=== PATIENT | female | born 1965 | race Caucasian/White ===

== ENCOUNTER 2017-10-04 23:00 | Observation (INO) ==
[2017-10-05] MEDS ORDERED: *HR* HYDROcodone/Acet 5/325 mg TABLET PO PRN (03:10)
[2017-10-05] MEDS ORDERED: Naloxone 0.4 MG/ML INJ IVP PRN (03:10)
[2017-10-05] MEDS ORDERED: Acetaminophen 325 MG TABLET PO PRN (03:10)
[2017-10-05] MEDS ORDERED: Ondansetron 4 MG/2 ML VIAL IVP PRN (03:10)
[2017-10-05] MEDS ORDERED: *HR* Heparin 5,000 UNIT/ML VIAL IVP PRN ×2 (03:13)
[2017-10-05] MEDS ORDERED: Nitroglycerin 1 INCH/GM PACKET TP ONE (03:14)
[2017-10-05] MEDS ORDERED: Heparin 25,000 UNIT/500 ML D5W 25,000 UNIT/500 ML BAG IVC SCH (03:15)
[2017-10-05] MEDS ORDERED: ALPRAZolam 1 MG TABLET PO PRN (03:15)
[2017-10-05 03:57] LABS: Hematocrit 39.3 % (35.3-44.9); Immature Platelets 8.6 % (1.1-6.1); Mean Corpuscular HGB Conc 33.1 g/dL (31.6-35.5); Mean Corpuscular Hemoglobin 31.1 pg (28.0-33.3); Mean Platelet Volume 11.5 fL (9.4-12.4); Red Blood Count 4.18 M/mcL (3.82-4.97); Red Cell Distribution Width 12.4 % (11.5-14.5)
[2017-10-05 03:59] LABS: Basophils # 0.1 K/mcL (0.0-0.2); Basophils % 0.5 %; Eosinophils # 0.4 K/mcL (0.0-0.6); Eosinophils % 3.1 %; Hematocrit 39.3 % (35.3-44.9); Immature Granulocytes % 0.4 % (0-4); Immature Platelets 8.5 % (1.1-6.1); Lymphocytes % 44.7 %; Mean Corpuscular HGB Conc 33.1 g/dL (31.6-35.5); Mean Corpuscular Hemoglobin 31.2 pg (28.0-33.3); Mean Corpuscular Volume 94.2 fL (83.0-100.0); Mean Platelet Volume 11.5 fL (9.4-12.4); Monocytes # 0.8 K/mcL (0.0-1.3); Monocytes % 6.8 %; Platelet Count 202 K/mcL (140-400); Red Blood Count 4.17 M/mcL (3.82-4.97); Red Cell Distribution Width 12.4 % (11.5-14.5); Segmented Neutrophils % 44.5 %
[2017-10-05 04:04] LABS: Prothrombin Time 21.3 Seconds (9.4-12.1)
[2017-10-05 04:07] LABS: Activated Partial Thrombo Time 80.1 Seconds (26.0-36.0)
[2017-10-05 04:12] LABS: BUN/Creatinine Ratio 29 (6-26); Blood Urea Nitrogen 18 mg/dL (6-20); Calcium 8.9 mg/dL (8.6-10.3); Carbon Dioxide 27 mEq/L (23-29); Chloride 112 mEq/L (98-107); Chol/HDL Ratio 4.2 (0-4.9); Cholesterol 130 mg/dL (< 200); Glucose 107 mg/dL (70-105); HDL Cholesterol 31 mg/dL (40-59); LDL Cholesterol,Calculated 79 mg/dL (0-99); Magnesium 2.2 mg/dL (1.6-2.6); Osmolality,Calculated 296 (280-300); Potassium 3.7 mEq/L (3.5-5.1); Sodium 142 mEq/L (136-145); Triglycerides 101 mg/dL (< 150); eGFR For African Americans > 60 (> 60); eGFR For Non-African Americans > 60 (> 60)
--- NOTE | 2017-10-05 06:20 | Internal Med History&Physical ---
Date of Encounter: 10/05/17 Time of Encounter: 02:00 Assessment and Plan (1) Chest pain Current visit: No Status: Acute Patient has a typical chest pain. History of CAD. - We will place patient on continuous cardiac monitoring. - Track 3 sets of troponin. - NTG paste. (Patient said SL NTG or NTG drip will make her hypotension) - Heparin drip per cardio recommendations - Pain medication as needed. - We will consult cardiology in a.m. Patient is at high risk because she is on heparin drip need close monitoring Qualifiers: Chest pain type: chest pain due to myocardial ischemia Ischemic chest pain type: unstable angina pectoris Qualified Code(s): I20.0 - Unstable angina (2) CAD (coronary artery disease) Current visit: No Status: Chronic Management as above Qualifiers: Coronary Disease-Associated Artery/Lesion type: bypass graft [place] vs. transplanted heart: [place] heart Associated angina: with unstable angina Qualified Code(s): I25.700 - Atherosclerosis of coronary artery bypass graft(s) , unspecified, with unstable angina pectoris (3) Ischemic cardiomyopathy Current visit: No Status: Chronic LVEF 45%. On beta amparo and EPHRAIM inhibitor. Patient appears euvolemic at this point (4) LV (left ventricular) mural thrombus Current visit: No Status: Chronic History of LV thrombosis. Patient is on Coumadin at home. Will hold Coumadin at this point as we have placed her on heparin drip. (5) DVT prophylaxis Current visit: No Status: Acute Patient is on heparin drip (6) Renal cell carcinoma Current visit: No Status: Resolved S/p ablation per patient. Qualifiers: Laterality: unspecified laterality Qualified Code(s): C64.9 - Malignant neoplasm of unspecified kidney, except renal pelvis (7) Hypertension Current visit: No Status: Chronic Qualifiers: Hypertension type: essential hypertension Qualified Code(s): I10 - Essential (primary) hypertension (8) Cigarette smoker Current visit: No Status: Chronic Smoking cessation education. Patient said she does not need nicotine patch at this point but may request if she feels that she needs Internal Medicine - H&P: HPI Chief complaint: Chest pain Admitted From: Home Plans for Post Hospital Care: Home History of present illness: Ms. Lawrence is a 52 year old female with history of CAD S/P stent and CABG, CHF, hypertension, history of renal carcinoma presents to [facility] emergency room for chest pain. Patient said pain started around 9:15 PM when she was wrapping up the [place] gifts at home. Sudden onset. Chest pain located on the mid chest and radiated to left arm and back, sharp pressure-like, 4-5 out of 10. Patient has shortness of breath, diaphoresis, and nausea. Patient has similar chest pain before but this time is worse. First troponin negative. Her EKG shows ischemia and possible acute ND. EKG was reviewed by cardiology Dr. Sarah and consider no significant change with previous EKG. Heparin drip was recommended. Patient was transferred to our hospital for further management. Past Med Surg Social Fam HX - Past Medical History Medical history: cancer, cardiomyopathy, CHF, coronary artery disease, hyperlipidemia, hypertension, myocardial infarction Psychiatric history: anxiety, depression - Past Surgical History Surgical History: appendectomy, coronary bypass (CABG), hysterectomy, pacemaker/ AICD, other - Social History Smoking Status: Current every day smoker Packs per day: 1 Smokeless Tobacco Status: No Alcohol use: none Drug use: none - Family History Brother Hx Family Cardiac Disorders: Yes (CAD) Father Living Status: Hx Family Cardiac Disorders: Yes (ND, CAD, CVA, HTN) Mother Living Status: Hx Family Cardiac Disorders: Yes (HTN) Hx Family Respiratory Disorders: Yes Hx Family Cancer: Yes (lung, uterine, laryngeal) Internal Medicine - H&P: Meds ALPRAZolam [Xanax 1 MG Tablet] 1 mg PO BID PRN 11/09/15 [History] Aspirin [Adult Low Dose Aspirin EC] 81 mg PO QAM 11/09/15 [History] Carvedilol Phosphate [Coreg Cr] 20 mg PO QPM 11/09/15 [History] Furosemide [Lasix] 20 mg PO QAM 11/09/15 [History] Lisinopril 5 mg PO DAILY 11/09/15 [History] Loratadine [Claritin] 10 mg PO QAM 11/09/15 [History] Omeprazole [PriLOSEC] 40 mg PO BID 11/09/15 [History] Potassium Chloride [K-Tab ER] 10 meq PO QAM 11/09/15 [History] Simvastatin [Zocor] 40 mg PO QPM 11/09/15 [History] Warfarin [Coumadin] 6 mg PO AD 11/09/15 [History] Warfarin [Coumadin] 9 mg PO AD 11/09/15 [History] Venlafaxine HCl [Venlafaxine HCl ER] 75 mg PO DAILY 08/08/16 [History] Isosorbide MONOnitrate (24 HR) [Imdur] 30 mg PO DAILY #30 tab.er.24h 08/10/16 [ Rx] Varenicline Tartrate [Chantix] 1 each PO BID #60 tab.ds.pk 08/10/16 [Rx] 3 Allergy/AdvReac Type Severity Reaction Status Date / Time Penicillins Allergy Anaphylaxis Verified 08/08/16 11:54 escitalopram [From Lexapro] AdvReac Gastrointestinal Verified 11/09/15 17:20 Upset Vinyl Gloves Allergy Rash Uncoded 11/09/15 17:20 All Systems PM: A 10-system review of systems was performed and is negative for pertinent findings except as documented above in the HPI. - Constitutional Vitals: Temp Pulse Resp BP Pulse Ox 98.9 F 64 16 138/81 96 10/05/17 04:07 10/05/17 04:07 10/05/17 04:07 10/05/17 04:07 10/05/17 04:07 General appearance: Present: mild distress, A&O X 3, answers questions appropriately - Head Head exam: Present: atraumatic, normocephalic - Eye Eye exam: Present: PERRL, conjuntiva pink, sclera anicteric Pupils: Present: PERRL - Neck Neck exam general surgery: Present: supple, trachea midline. Absent: lymphadenopathy - Respiratory Respiratory exam: Present: CTAB. Absent: accessory muscle use, rales, rhonchi, wheezes - Cardiovascular Cardiovascular exam: Present: RRR, +S1, +S2. Absent: diastolic murmur, gallop, rubs, systolic murmur - GI/Abdominal GI/Abdominal exam: Present: normal bowel sounds, soft, no peritoneal signs. Absent: distended, tenderness - Extremities Exam Extremities exam: Present: warm, radial pulses palpable and symmetrical. Absent : calf tenderness, cyanotic, pedal edema - Neurological Exam Neurological exam: Present: CN II-XII intact, oriented X3, no focal deficits. Absent: pronater drift, facial droop, speech deficit - Skin Skin exam: Present: dry, intact Internal Med - H&P Results - Labs CBC & Chem 7: 10/05/17 03:39 10/05/17 03:39 Labs: Short CBC 10/05/17 10/05/17 Range/Units 03:39 03:39 WBC 11.2 H 11.3 H (4.3-11.1) K/mcL Hgb 13.0 13.0 (11.5-15.4) g/dL Hct 39.3 39.3 (35.3-44.9) % Plt Count 202 201 (140-400) K/mcL Neutrophils # 5.0 (1.6-8.9) K/mcL BMP 10/05/17 03:39 Sodium 142 Potassium 3.7 Chloride 112 H Carbon Dioxide 27 BUN 18 Creatinine 0.62 Glucose 107 H Calcium 8.9 Cardiac Enzymes 10/05/17 Range/Units 03:39 Troponin I < 0.03 (< 0.04) ng/mL - EKG Data -: EKG Interpreted by Myself EKG shows normal: sinus rhythm, ST-T waves (Poot R wave progression on V1-V3, T wave inversion through V3-V6) Rate: normal - EKG Data Prior EKG available for review: yes When compared to previous EKG: there is no significant change Interpretation IM: suggestive of ischemia
[2017-10-05] MEDS: Aspirin Enteric Coated 81 MG Tablet PO SCH (08:30)
[2017-10-05] MEDS: Loratadine 10 MG TABLET PO SCH (08:30)
[2017-10-05] MEDS: Furosemide 20 MG TABLET PO SCH (08:31)
[2017-10-05] MEDS ORDERED: Isosorbide MONOnitrate (24 HR) 30 MG TAB.ER.24H PO SCH (09:00)
--- NOTE | 2017-10-05 10:20 | Cardiology Consult Note ---
<Laila Pace Adrian - Last Filed: 10/05/17 10:42> Date of Encounter: 10/05/17 Time of Encounter: 09:30 Assessment and Plan (1) Chest pain Current Visit: Yes Status: Acute Atypical chest pain. Troponin negative x2. ECG unchanged from 07/2016. Blood pressure severely elevated upon admission at [facility], SBP>190. Check echocardiogram. Suspect symptoms may be secondary to severely elevated BP. Stop NTG paste, will increase Imdur to 60 mg. Continue asa, statin, and betablocker. Await results of third troponin measurement. If no significant changes on TTE, recommend medical management. Can consider ischemic evaluation in the outpatient setting. Close follow-up with [facility], Dr. He. Qualifiers: Chest pain type: chest pain due to myocardial ischemia Ischemic chest pain type: unspecified angina pectoris type Qualified Code(s): I20.9 - Angina pectoris, unspecified (2) Ischemic cardiomyopathy Current Visit: Yes Status: Acute Hx of ischemic cardiomyopathy s/p ICD implant. CABG 2009. [facility] 07/2016--s/p 3 of 3 patent bypass grafts and patent pLAD stent. EF 45% per TTE 07/2016. Continue current CV medications. Plan as stated above. (3) LV (left ventricular) mural thrombus Current Visit: Yes Status: Chronic Hx of LV thrombus on Coumadin. Echocardiogram pending. (4) Hypertension Current Visit: Yes Status: Chronic Severely elevated upon presentation to [facility], now controlled. Continue to monitor BP closely. Qualifiers: Hypertension type: essential hypertension Qualified Code(s): I10 - Essential (primary) hypertension Discussion w patient/family: The assessment and plan as outlined above was discussed with the patient and/or family members who expressed understanding and agreement. All questions were answered. Thank you for involving us in the care of your patient. Please call with any questions. The patient will be discussed and reviewed with Dr. Wynne; changes to be made accordingly. History of Present Illness Consult date: 10/05/17 Requesting physician: Page Benites Consult reason: Chest pain Chief complaint: Chest pain History of present illness: Ms. Lawrence is a 52 year old female with PMHx significant for ischemic cardiomyopathy s/p ICD, CABG (2009) and PCI, LV thrombus on coumadin, HTN, renal cancer, and HLD who presented to [facility] with complaints of midsternal chest pressure that occurred while wrapping presents. Discomfort radiated to left shoulder and arm. Reports took x5 baby asa at home and then went to [facility] ED. Pain eventually subsided. She reports discomfort, "mild," over the past several weeks that has worsened with exertion. Denies ICD shock or fire. Recent CV testing includes: TTE 08/09/16: LVEF 45% with regional wall motion abnormalities LHC 08/10/16: severe 2vCAD, s/p 3 of 3 patent bypass grafts, patent pLAD stent from previous procedure--medical management recommended. Past Med Surg Social Fam HX - Past Medical History Attestation: Yes The following information was validated with the patient. Source: patient, old records reviewed Medical history: cancer, cardiomyopathy, CHF, coronary artery disease, hyperlipidemia, hypertension, myocardial infarction Psychiatric history: anxiety, depression - Past Surgical History Surgical History: appendectomy, coronary bypass (CABG), hysterectomy, other, AICD - Social History Smoking Status: Current every day smoker Packs per day: 1 Smokeless Tobacco Status: No Alcohol use: none Drug use: none - Family History Brother Hx Family Cardiac Disorders: Yes (CAD) Father Living Status: Hx Family Cardiac Disorders: Yes ([place], CAD, CVA, HTN) Mother Living Status: Hx Family Cardiac Disorders: Yes (HTN) Hx Family Respiratory Disorders: Yes Hx Family Cancer: Yes (lung, uterine, laryngeal) Medications and Allergies ALPRAZolam [Xanax 1 MG Tablet] 1 mg PO BID PRN 11/09/15 [History] Aspirin [Adult Low Dose Aspirin EC] 81 mg PO QAM 11/09/15 [History] Furosemide [Lasix] 20 mg PO QAM 11/09/15 [History] Loratadine [Claritin] 10 mg PO QAM 11/09/15 [History] Omeprazole [PriLOSEC] 40 mg PO BID 11/09/15 [History] Potassium Chloride [K-Tab ER] 10 meq PO QAM 11/09/15 [History] Simvastatin [Zocor] 40 mg PO QPM 11/09/15 [History] Warfarin [Coumadin] 3 mg PO MOWEFR 11/09/15 [History] Warfarin [Coumadin] 6 mg PO SUTUTHSA 01/26/16 [History] Isosorbide MONOnitrate (24 HR) [Imdur] 30 mg PO DAILY #30 tab.er.24h 08/10/16 [ Rx] Carvedilol [Coreg] 6.25 mg PO BID 10/05/17 [History] Lisinopril [Zestril] 10 mg PO DAILY 10/05/17 [History] 3 Allergy/AdvReac Type Severity Reaction Status Date / Time Penicillins Allergy Anaphylaxis Verified 10/05/17 09:00 escitalopram [From Lexapro] AdvReac Gastrointestinal Verified 10/05/17 09:00 Upset Vinyl Gloves Allergy Rash Uncoded 10/05/17 09:00 All Systems Review: A 10-system review of systems was performed and is negative for pertinent findings except as documented above in the HPI. - Cardiovascular Cardiovascular: as per HPI Physical Examination Vital Signs, Last 4 Hours Temp Pulse Resp BP Pulse Ox 10/05/17 06:56 98.1 F 66 14 103/57 92 General: Conversant, No Apparent Distress HEENT: Atraumatic, Normocephaly, Mucus Membranes Moist Cardiac: Reg Rate and Rhythm, Normal S1 and S2 Lungs: Normal Breath Sounds Neuro: Alert and responsive Abdomen: Soft Skin: No rashes noted on visualized skin Musculoskeletal: No Chest Wall Tenderness Extremities: No Edema, Normal Pulses Results 10/05/17 03:39 10/05/17 09:49 Lab Results 10/05/17 10/05/17 10/05/17 03:39 03:39 03:39 WBC 11.2 H Hgb 13.0 Hct 39.3 Plt Count 202 INR APTT Sodium 142 Potassium 3.7 Chloride 112 H Carbon Dioxide 27 BUN 18 Creatinine 0.62 Glucose 107 H Calcium 8.9 Magnesium 2.2 Troponin I < 0.03 10/05/17 10/05/17 03:39 03:39 WBC 11.3 H Hgb 13.0 Hct 39.3 Plt Count 201 INR 2.0 APTT 80.1 H D Sodium Potassium Chloride Carbon Dioxide BUN Creatinine Glucose Calcium Magnesium Troponin I Active Medications Acetaminophen (Tylenol) 650 mg PO Q6HR PRN PRN Reason: Mild Pain (1-3) Stop: 04/06/18 03:11 Hydrocodone Bitart/Acetaminophen ([place] 5-325 Mg) 1 tab PO Q4HR PRN PRN Reason: Moderate Pain (4-6) Stop: 04/06/18 03:11 Last Admin: 10/05/17 03:42 Dose: 1 tab Alprazolam (Xanax) 1 mg PO BID PRN; Protocol PRN Reason: Anxiety Stop: 04/06/18 03:16 Aspirin (Aspirin Ec) 81 mg PO QAM [facility] Stop: 04/06/18 09:01 Last Admin: 10/05/17 08:30 Dose: 81 mg Carvedilol (Coreg) 12.5 mg PO BIDWM [facility] PRN Reason: Protocol Stop: 04/06/18 08:01 Last Admin: 10/05/17 08:31 Dose: 12.5 mg Furosemide (Lasix) 20 mg PO QAM [facility] Stop: 04/06/18 09:01 Last Admin: 10/05/17 08:31 Dose: 20 mg Heparin Sodium (Porcine) (Heparin) 3,700 unit 60 unit/kg (3700 unit) IVP Q6HR PRN PRN Reason: SEE COMMENTS Stop: 04/06/18 03:14 Heparin Sodium (Porcine) (Heparin) 1,900 unit 30 unit/kg (1900 unit) IVP Q6H PRN PRN Reason: SEE COMMENTS Stop: 04/06/18 03:14 Heparin Sodium/Dextrose (Heparin 25,000 Unit/500 Ml D5w) 25,000 unit in 500 mls @ 14.976 mls/hr IVC .Q24H DOMITIL[facility]; 12 UNIT/KG/HR PRN Reason: Protocol Stop: 04/06/18 03:16 Last Titration: 10/05/17 04:27 Dose: 12 unit/kg/hr, 14.976 mls/hr Isosorbide Mononitrate (Imdur) 60 mg PO DAILY [facility] Stop: 04/06/18 10:22 Lisinopril (Zestril) 5 mg PO DAILY [facility] Stop: 04/06/18 09:01 Last Admin: 10/05/17 08:31 Dose: 5 mg Loratadine (Claritin) 10 mg PO QAM [facility] PRN Reason: Protocol Stop: 04/06/18 09:01 Last Admin: 10/05/17 08:30 Dose: 10 mg Naloxone HCl (Narcan) 0.4 mg IVP Q2MIN PRN PRN Reason: Opioid Reversal Stop: 04/06/18 03:11 Omeprazole (Prilosec) 40 mg PO BID [facility] Stop: 04/06/18 09:01 Last Admin: 10/05/17 08:30 Dose: 40 mg Ondansetron HCl (Zofran) 4 mg IVP Q8HR PRN PRN Reason: Nausea And Vomiting Stop: 04/06/18 03:11 Potassium Chloride (Potassium Chloride) 10 meq PO QAM [facility] Stop: 04/06/18 09:01 Last Admin: 10/05/17 08:30 Dose: 10 meq Simvastatin (Zocor) 40 mg PO QPM [facility] PRN Reason: Protocol Stop: 04/06/18 18:01 - Imaging and Cardiology Echo: pending, report reviewed Cardiac cath: report reviewed Other Results: 12 hour tele: avg HR=67 SR. - EKG Interpretation EKG results cardiology: personally reviewed Consult Discharge Plan - Plan Referrals: Brody Boland MD [Primary Care Provider] - <RicciUma - Last Filed: 10/05/17 17:17> Date of Encounter: 10/05/17 - Attending Attestation I examined this patient and my medical decision-making was reviewed with the ANIMAL SCIENCE INSTRUCTOR. I agree with the documented findings, disposition and treatment plan as described. Ms. Lawrence presents with atypical chest pain and negative troponin x3. Patient noted to have very high BP at [facility] which may have contributed to patient's chest discomfort. Awaiting echo findings. If not significant change, we anticipate sign off. Can consider outpatient ischemic evaluation. Assessment and Plan Discussion w patient/family: The assessment and plan as outlined above was discussed with the patient and/or family members who expressed understanding and agreement. All questions were answered. Thank you for involving us in the care of your patient. Please call with any questions. History of Present Illness History of present illness: Ms. Lawrence is a 52 year old female All Systems Review: A 10-system review of systems was performed and is negative for pertinent findings except as documented above in the HPI. Physical Examination Vital Signs, Last 4 Hours Temp Pulse Resp BP Pulse Ox 10/05/17 15:01 98.4 F 76 14 112/70 91 Results 10/05/17 03:39 10/05/17 09:49 Lab Results 10/05/17 10/05/17 10/05/17 03:39 03:39 03:39 WBC 11.2 H Hgb 13.0 Hct 39.3 Plt Count 202 INR APTT Sodium 142 Potassium 3.7 Chloride 112 H Carbon Dioxide 27 BUN 18 Creatinine 0.62 Glucose 107 H Calcium 8.9 Magnesium 2.2 Troponin I < 0.03 10/05/17 10/05/17 10/05/17 03:39 03:39 09:49 WBC 11.3 H Hgb 13.0 Hct 39.3 Plt Count 201 INR 2.0 APTT 80.1 H D Sodium Potassium Chloride Carbon Dioxide BUN Creatinine Glucose Calcium Magnesium Troponin I < 0.03 10/05/17 10/05/17 09:49 09:49 WBC Hgb Hct Plt Count INR APTT 51.4 H Sodium 142 Potassium 3.9 Chloride 113 H Carbon Dioxide 26 BUN 18 Creatinine 0.63 Glucose 97 Calcium 8.8 Magnesium Troponin I
[2017-10-05 10:24] LABS: BUN/Creatinine Ratio 29 (6-26); Blood Urea Nitrogen 18 mg/dL (6-20); Calcium 8.8 mg/dL (8.6-10.3); Carbon Dioxide 26 mEq/L (23-29); Chloride 113 mEq/L (98-107); Glucose 97 mg/dL (70-105); Osmolality,Calculated 296 (280-300); Potassium 3.9 mEq/L (3.5-5.1); Sodium 142 mEq/L (136-145); eGFR For African Americans > 60 (> 60); eGFR For Non-African Americans > 60 (> 60)
[2017-10-05] MEDS ORDERED: Isosorbide MONOnitrate (24 HR) 30 MG TAB.ER.24H PO ONE (11:00)
[2017-10-05] MEDS ORDERED: Perflutren Lipid Microsphere 1.3 ML in 0.9 % Sodium Chloride 8.7 ML IVP ONE (15:42)
--- NOTE | 2017-10-05 16:59 | Event Note ---
Date of Encounter: 10/05/17 Time of Encounter: 11:00 Patient admitted for ACS rule out due to symptoms of chest pain. Patient with past medical history significant for coronary artery disease; ischemic cardiomyopathy status post ICD implant in addition to CABG with 3 prior stents. Cardiology consulted with recommendations to follow serial troponins and echocardiogram.
[2017-10-06] MEDS ORDERED: Isosorbide MONOnitrate (24 HR) 30 MG TAB.ER.24H PO SCH (09:00)
[2017-10-06 10:59] VITALS: BP 106/65
[2017-10-06] MEDS: Aspirin Enteric Coated 81 MG Tablet PO SCH (12:01)
[2017-10-06] MEDS: Furosemide 20 MG TABLET PO SCH (12:02)
[2017-10-06] MEDS: Loratadine 10 MG TABLET PO SCH (12:02)
--- NOTE | 2017-10-06 12:30 | Event Note ---
Date of Encounter: 10/06/17 Time of Encounter: 12:28 - Cardiology Event Note Echo completed--EF unchanged, 45%, no evidence of LV thrombus on this echo or 2 previous echos in 2016. Troponins negative. Stop heparin gtt. Pt has been seen/ followed closely by Dr. He as outpt. Will coordinate follow-up and let him decide as outpt if Coumadin can safely be stopped or if needs to be continued. Continue for now. Cardiology signing off. Reconsult PRN.
[2017-10-06 12:58] LABS: BUN/Creatinine Ratio 28 (6-26); Blood Urea Nitrogen 20 mg/dL (6-20); Carbon Dioxide 25 mEq/L (23-29); Chloride 110 mEq/L (98-107); Glucose 123 mg/dL (70-105); Osmolality,Calculated 296 (280-300); Potassium 3.9 mEq/L (3.5-5.1); Sodium 141 mEq/L (136-145); eGFR For African Americans > 60 (> 60); eGFR For Non-African Americans > 60 (> 60)
[2017-10-06 13:22] LABS: Basophils # 0.1 K/mcL (0.0-0.2); Basophils % 0.6 %; Eosinophils # 0.3 K/mcL (0.0-0.6); Eosinophils % 3.2 %; Hematocrit 38.4 % (35.3-44.9); Hemoglobin 12.9 g/dL (11.5-15.4); Immature Granulocytes % 0.2 % (0-4); Lymphocytes # 3.6 K/mcL (0.6-4.6); Lymphocytes % 35.4 %; Mean Corpuscular HGB Conc 33.6 g/dL (31.6-35.5); Mean Corpuscular Hemoglobin 31.5 pg (28.0-33.3); Mean Corpuscular Volume 93.9 fL (83.0-100.0); Mean Platelet Volume 11.8 fL (9.4-12.4); Monocytes # 0.7 K/mcL (0.0-1.3); Monocytes % 6.7 %; Neutrophils # 5.4 K/mcL (1.6-8.9); Platelet Count 187 K/mcL (140-400); Red Blood Count 4.09 M/mcL (3.82-4.97); Red Cell Distribution Width 12.6 % (11.5-14.5); Segmented Neutrophils % 53.9 %
--- NOTE | 2017-10-06 14:51 | Discharge Summary ---
Date of Encounter: 10/06/17 Time of Encounter: 11:00 - Discharge Diagnosis (1) Chest pain Priority: Primary Status: Acute Qualifiers: Chest pain type: chest pain due to myocardial ischemia Ischemic chest pain type: unspecified angina pectoris type Qualified Code(s): I20.9 - Angina pectoris, unspecified (2) CAD (coronary artery disease) Priority: Secondary Status: Chronic Qualifiers: Coronary Disease-Associated Artery/Lesion type: bypass graft [place] vs. transplanted heart: [place] heart Associated angina: with unstable angina Qualified Code(s): I25.700 - Atherosclerosis of coronary artery bypass graft(s) , unspecified, with unstable angina pectoris (3) Ischemic cardiomyopathy Priority: Secondary Status: Chronic (4) ICD (implantable cardioverter-defibrillator) in place Priority: Secondary Status: Chronic (5) Renal cell carcinoma Priority: Secondary Status: Resolved Qualifiers: Laterality: unspecified laterality Qualified Code(s): C64.9 - Malignant neoplasm of unspecified kidney, except renal pelvis - Discharge Medications Home Medications: ALPRAZolam [Xanax 1 MG Tablet] 1 mg PO BID PRN 11/09/15 [History] Aspirin [Adult Low Dose Aspirin EC] 81 mg PO QAM 11/09/15 [History] Furosemide [Lasix] 20 mg PO QAM 11/09/15 [History] Loratadine [Claritin] 10 mg PO QAM 11/09/15 [History] Omeprazole [PriLOSEC] 40 mg PO BID 11/09/15 [History] Potassium Chloride [K-Tab ER] 10 meq PO QAM 11/09/15 [History] Simvastatin [Zocor] 40 mg PO QPM 11/09/15 [History] Warfarin [Coumadin] 3 mg PO MOWEFR 11/09/15 [History] Warfarin [Coumadin] 6 mg PO SUTUTHSA 11/09/15 [History] Isosorbide MONOnitrate (24 HR) [Imdur] 30 mg PO DAILY #30 tab.er.24h 08/10/16 [ Rx] Carvedilol [Coreg] 6.25 mg PO BID 10/05/17 [History] Lisinopril [Zestril] 10 mg PO DAILY 10/05/17 [History] Allergies/Adverse Reactions: 3 Allergy/AdvReac Type Severity Reaction Status Date / Time Penicillins Allergy Anaphylaxis Verified 10/05/17 09:00 escitalopram [From Lexapro] AdvReac Gastrointestinal Verified 10/05/17 09:00 Upset Vinyl Gloves Allergy Rash Uncoded 10/05/17 09:00 Procedures/tests Complete & Pending: Procedures Performed prior 72 hours Category Date Time Status ECG 12 lead ECG [ECG] AM 0600 Y 10/05/17 06:00 Ordered EV echocardiogram w enhance Routine Y 10/05/17 10:20 Completed Date of admission: 10/05/17 00:33 Primary care physician: Brody Boland MD Consults: 10/05/17 03:18 Consult to Cardiology [CONS] Routine Comment: Consulting Provider: Cardiology [place] Reason for Consult: Chest pain Call Completed: No - Patient Status Disposition: Home, Self-Care - Discharge Instructions Follow Up With: Brody Boland MD [Primary Care Provider] - Hospital course: Patient is a 52-year-old male with past medical history significant for CAD S/P stent and CABG, CHF, hypertension and history of renal carcinoma who presented to [facility] emergency room on 10/05/17 with chest pain. Patient reported of substernal chest pain chest pain that occurred approximately 9:00 in the evening while wrapping [place] presents at home. He stated that the pain radiated to his left arm and back and reported a severity of 4-5 out of 10 with associated symptoms of shortness of breath, diaphoresis and nausea. At [facility] emergency room, his first troponin was negative and EKG showed ischemia and possible acute CT. EKG was reviewed by cardiology Dr. Sarah and no significant change was noted with previous EKG. Heparin drip was started and patient was transferred to the medical surgical floor of [facility] for further management. During patients hospital stay, cardiology was consulted with recommendations for echocardiogram which showed unchanged LVEF of 45% and negative troponins. Recommendations for discontinuation of heparin drip and for patient to follow- up with cardiology as an outpatient. - Time Spent with Patient Total time spent providing and/or coordinating discharge services: Less than 30 minutes - Constitutional Vitals: Temp Pulse Resp BP Pulse Ox 98.3 F 81 14 106/65 94 10/06/17 10:57 10/06/17 10:57 10/06/17 10:57 10/06/17 10:57 10/06/17 10:57 General appearance: Present: mild distress, A&O X 3, answers questions appropriately - Respiratory Respiratory exam: Present: CTAB. Absent: accessory muscle use, rales, rhonchi, wheezes - Cardiovascular Cardiovascular exam: Present: RRR, +S1, +S2. Absent: diastolic murmur, gallop, rubs, systolic murmur
[2017-10-06] MEDS ORDERED: Warfarin perPT PO PRN (18:00)
[2017-10-06] MEDS ORDERED: *HR* Warfarin 3 MG TABLET PO ONE (18:00)
== END 2017-10-06 16:30 | disposition home or self-care (01) ==
LOC: INTOOBSV 10-05 00:33 → 2NENU 10-05 00:33
PROVIDERS: ADMIT Internal Medicine; ATTEND Hospitalist